=== PATIENT | male | born 1945 | race Caucasian/White ===

== ENCOUNTER → 2020-05-19 | Outpatient (CLI) | payer MEDICARE ==
[2018-10-23 14:10] VITALS: BP 148/68
[~2020-05-19] MED LIST: ACET325T9 PO; ALPH300C PO; AMLO-186 PO; ASPI-482 PO; ATOR10TA60 PO; ATOR40TA59 PO; CARDIO B; DOXY100T PO; GABA300C18 PO; HYDR-3164 PO; IBUP-1027 PO; LACT1CAP19 PO; METO25TA4 PO; MULT-629 PO; MUPI22OI2 NS; OMEG1CAP27 PO; UBID50TA PO
--- NOTE | 2020-05-19 17:47 | CARD ---
MR#: [id number] Date of Study: 05/19/2020 Ordering Physician: LISA LEHMAN, Referring Physician: LISA LEHMAN, Tech: Umm Braxton [facility] APPROVED REPORT EXAM: Two-dimensional and M-mode echocardiogram with Doppler and color Doppler. Other Information Quality : Fair INDICATION Cardiac Disease: CAD 2D DIMENSIONS RVDd2.8 (2.9-3.5cm)Left Atrium(2D)3.0 (1.6-4.0cm) IVSd1.0 (0.7-1.1cm)Aortic Root(2D)3.0 (2.0-3.7cm) LVDd5.3 (3.9-5.9cm)LVOT Diameter2.0 (1.8-2.4cm) PWd1.1 (0.7-1.1cm)LVDs3.6 (2.5-4.0cm) FS (%) 32.8 %SV81.9 ml LVEF(%)60.9 (>50%) Aortic Valve AoV Peak Elie.109.2cm/sAoV VTI23.9cm AO Peak GR.4.8mmHgLVOT Peak Elie.95.7cm/s AO Mean GR.2mmHgAVA (VMAX)2.81cm2 OBED (VTI)2.73cl3ZZ P 1/2 Mcqr441st Mitral Valve MV E Mpxtnkuq714.4cm/sMV DECEL VPNO920hi MV A Jnxtkwzd21.9cm/sE/A Ratio1.6 Tricuspid Valve TR P. Cfchmjyn257fx/sRAP AEYKBIVW2mmVl TR Peak Gr.06kkSeZVWY57wvDp Pulmonary Vein S1 Rxivrcwn98.8cm/sD2 Dharfgae69.1cm/s LEFT VENTRICLE The left ventricle is normal size. There is normal left ventricular wall thickness. The left ventricu lar systolic function is normal and the ejection fraction is within normal range. The Ejection Fracti on is 55-60%. There is normal LV segmental wall motion. Transmitral Doppler flow pattern is Grade II- pseudonormal filling dynamics. RIGHT VENTRICLE The right ventricle is normal size. The right ventricular systolic function is normal. ATRIA The left atrium size is normal. The right atrium size is normal. The interatrial septum is intact wit h no evidence for an atrial septal defect or patent foramen ovale as noted on 2-D or Doppler imaging. AORTIC VALVE The aortic valve is calcified but opens well. Doppler and Color Flow revealed mild aortic regurgitati on. There is no significant aortic valvular stenosis. MITRAL VALVE The mitral valve is calcified but opens well. There is no evidence of mitral valve prolapse. There is no mitral valve stenosis. Doppler and Color-flow revealed trace to mild mitral regurgitation. TRICUSPID VALVE The tricuspid valve is normal in structure and function. Doppler and Color Flow revealed trace tricus pid regurgitation. The PA pressure was estimated at 44 mmHg. There is no tricuspid valve stenosis. PULMONIC VALVE The pulmonic valve is not well visualized. Doppler and Color Flow revealed no pulmonic valvular regur gitation. There is no pulmonic valvular stenosis. GREAT VESSELS The aortic root is normal in size. The ascending aorta is normal in size. The IVC is dilated and yu apses >50% with inspiration. PERICARDIAL EFFUSION There is no evidence of significant pericardial effusion. Critical Notification Critical Value: No <Conclusion> The left ventricle is normal size. The left ventricular systolic function is normal and the ejection fraction is within normal range. The Ejection Fraction is 55-60%. Doppler and Color Flow revealed mild aortic regurgitation. There is no significant aortic valvular stenosis. Doppler and Color-flow revealed trace to mild mitral regurgitation. Doppler and Color Flow revealed trace tricuspid regurgitation. The PA pressure was estimated at 44 mmHg. Signed by : Rajesh Laughlin MD Electronically Approved : 05/19/2020 17:47:02
== END ==
LOC: ECHO 09:29
PROVIDERS: ATTEND Internal Medicine Cardiovascular Disease
DX: I08.0 Rheumatic disorders of both mitral and aortic valves (principal); I25.10 Atherosclerotic heart disease of native coronary artery without angina pectoris
CPT/HCPCS: 93306

== ENCOUNTER → 2021-09-01 | Outpatient (CLI) | payer MEDICARE ==
[2018-10-23 14:10] VITALS: BP 148/68
--- NOTE | 2021-09-01 12:35 | RAD ---
MR#: [id number] Date of Study: 09/01/2021 Ordering Physician: LISA LEHMAN, Referring Physician: LISA LEHMAN, Tech: Aron Blackmon MBA, RDMS, RVT, RDCS, RTR APPROVED REPORT Patient Location: OUT-PATIENT Indications PAD Findings The right ankle-brachial index is within normal limits at 1.1. The left ankle-brachial index is also within normal limits at 1.1. No significant peripheral artery stenosis based on THOMAS. Critical Notification Critical Value: No <Conclusion> Bilateral lower extremity ankle-brachial indices are within normal limits suggesting no significant p eripheral artery stenosis Signed by : Freeman Alvarez, Electronically Approved : 09/01/2021 12:34:19
--- NOTE | 2021-09-01 12:39 | RAD ---
MR#: [id number] Date of Study: 09/01/2021 Ordering Physician: LISA LEHMAN, Referring Physician: LISA LEHMAN, Tech: Aron Blackmon MBA, RDMS, RVT, RDCS, RTR APPROVED REPORT Patient Location: OUT-PATIENT Indications PAD VELOCITY AND DOPPLER WAVEFORM ANALYSIS RIGHT cm/secWaveformSeverity LEFT cm/secWaveform Severity dCFA 171.0TriphasicdCFA 163.0Triphasic Prof Fem Art. 110.0TriphasicProf Fem Art. 76.0Biphasic Fem Art Prox. 135.0TriphasicFem Art Prox. 154.0Triphasic Fem Art Mid. 148.0TriphasicFem Art Mid. 132.0Triphasic Fem Art Dist. 137.0TriphasicFem Art Dist. 352.0Triphasic Pop Art(Fossa) 124.0TriphasicPop Art(AK) 128.0Triphasic COBOL PROGRAMMER Prox. 157.0MonophasicPTA Prox. 114.0Triphasic COBOL PROGRAMMER Dist. 122.0MonophasicPTA Dist. 111.0Triphasic JOE Prox. 105.0MonophasicATA Prox. 51.0Triphasic DPA 28MonophasicDPA 70Triphasic Findings Grayscale images of peripheral arteries bilateral lower extremities showed mild diffuse atheroscleros is above the knee vessels and moderate diffuse atherosclerosis below the knee vessels. Spectral wave form and color duplex analysis was performed both lower extremities. There were mildly increased carmen ocities in bilateral common femoral arteries with triphasic waveforms. The right deep femoral, super ficial femoral and popliteal arteries showed normal velocities with triphasic waveforms. Below the k nee, the anterior tibial and posterior tibial arteries showed monophasic waveforms suggestive of mode rate diffuse disease. The peroneal artery was not well visualized. In the left lower extremity, there were normal velocities with triphasic waveforms in proximal and mi d segments of the superficial femoral artery. The distal segment of the left superficial femoral art virgie showed significantly elevated peak systolic velocities of 352 cm/s suggestive of greater than 70% stenosis. Left popliteal artery showed triphasic waveforms with normal velocities. Below the knee, the left anterior and posterior tibial arteries showed monophasic waveforms suggestive of moderate d iffuse disease. The left peroneal artery was not well visualized. Critical Notification Critical Value: No <Conclusion> Bilateral lower extremity arterial duplex scan showed significant greater than 70% stenosis involving the distal segment of the left superficial femoral artery. Signed by : Freeman Alvarez, Electronically Approved : 09/01/2021 12:39:21
--- NOTE | 2021-09-01 12:44 | RAD ---
MR#: [id number] Date of Study: 09/01/2021 Ordering Physician: LISA LEHMAN, Referring Physician: LISA LEHMAN, Tech: Aron Blackmon MBA, RDMS, RVT, RDCS, RTR APPROVED REPORT Patient Location: OUT-PATIENT Laterality:Bilateral Indications CAROTID STENOSIS Doppler Spectral Velocity Analysis Right Left pCCA 95/14 cm/spCCA 115/26 cm/s mCCA 106/15 cm/smCCA 128/24 cm/s dCCA 97/15 cm/sdCCA 100/16 cm/s Bulb 120/14 cm/sBulb 95/15 cm/s ECA 245/ cm/sECA 162/ cm/s pICA 96/23 cm/spICA 65/17 cm/s Samson 197/44 cm/smICA 88/21 cm/s dICA 143/21 cm/sdICA 116/29 cm/s Vert. Vert. 58/ cm/s Subcl. 175/ cm/sSubcl. 186/ cm/s ICA/CCA 1.86ICA/CCA 1.01 Findings Grayscale images of extracranial carotid arteries showed moderate plaque involving both carotid bulbs and right internal carotid artery. Spectral waveform and color duplex analysis showed normal veloci ties in bilateral common carotid and left internal carotid arteries suggestive of 0 to less than 50% stenosis. The right internal carotid artery in the midsegment showed elevated peak systolic velocity of 197 cm/s suggestive of 50 to 69% stenosis. The ICA to CCA ratios were within normal limits bilat erally. The external carotid arteries bilaterally showed increased velocities suggestive of moderate stenosis. The left vertebral artery showed antegrade flow with normal velocities. 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 Critical Notification Critical Value: No <Conclusion> Carotid arterial duplex scan showed moderate 50 to 69% stenosis involving the right internal carotid artery. Signed by : Freeman Alvarez, Electronically Approved : 09/01/2021 12:43:55
== END ==
LOC: US 09:33
PROVIDERS: ATTEND Internal Medicine Cardiovascular Disease
DX: I65.23 Occlusion and stenosis of bilateral carotid arteries (principal); I70.203 Unspecified atherosclerosis of native arteries of extremities, bilateral legs
CPT/HCPCS: 93880; 93922; 93925

== ENCOUNTER → 2021-09-07 | Outpatient (CLI) | payer MEDICARE ==
[2018-10-23 14:10] VITALS: BP 148/68
--- NOTE | 2021-09-07 16:40 | CARD ---
MR#: [id number] Date of Study: 09/07/2021 Ordering Physician: LISA LEHMAN, Referring Physician: LISA LEHMAN, Tech: Mervat Dumont [facility],T APPROVED REPORT EXAM: Two-dimensional and M-mode echocardiogram with Doppler and color Doppler. Other Information Quality : AverageHR: 100bpm Rhythm : NSR INDICATION Congestive Heart Failure 2D DIMENSIONS RVDd2.8 (2.9-3.5cm)Left Atrium(2D)3.2 (1.6-4.0cm) IVSd1.1 (0.7-1.1cm)Aortic Root(2D)3.4 (2.0-3.7cm) LVDd5.1 (3.9-5.9cm)LVOT Diameter2.0 (1.8-2.4cm) PWd1.2 (0.7-1.1cm)LVDs3.8 (2.5-4.0cm) FS (%) 24.4 %SV59.4 ml LVEF(%)48.2 (>50%) Aortic Valve AoV Peak Elie.118.5cm/Keyla Peak GR.5.9mmHg LVOT Peak Elie.97.2cm/sAVA (VMAX)2.59cm2 Mitral Valve MV E Bbjaazlr990.5cm/sMV DECEL ANEU408vp MV A Ykktyeqb45.1cm/sE/A Ratio1.4 Pulmonary Valve PV Peak Bnqmrdyg96.3cm/s Tricuspid Valve TR P. Xyibctzi203st/sRAP NONDUKCB3wgFc TR Peak Gr.22qlYvXVFM64abGa Pulmonary Vein S1 Pscrjhru26.8cm/sD2 Idzdiyab43.4cm/s PVa [id number] LEFT VENTRICLE The left ventricle is normal size. There is borderline to mild concentric left ventricular hypertroph y. The left ventricular systolic function is normal. The Ejection Fraction is 55 to 60%. No regional wall motion abnormalities noted. Transmitral Doppler flow pattern is Grade II-pseudonormal filling dy namics. No left ventricle thrombus noted on this study. There is no ventricular septal defect visuali zed. There is no left ventricular aneurysm. There is no mass noted in the left ventricle. RIGHT VENTRICLE The right ventricle is normal size. There is normal right ventricular wall thickness. The right ventr icular systolic function is normal. ATRIA The left atrium size is normal. The right atrium size is normal. The interatrial septum is intact wit h no evidence for an atrial septal defect or patent foramen ovale as noted on 2-D or Doppler imaging. AORTIC VALVE The aortic valve is normal in structure and function. Doppler and Color Flow revealed mild aortic reg urgitation. There is no aortic valvular stenosis. There is no aortic valvular vegetation. MITRAL VALVE The mitral valve is normal in structure and function. There is no evidence of mitral valve prolapse. There is no mitral valve stenosis. Doppler and Color Flow revealed mild mitral regurgitation. TRICUSPID VALVE The tricuspid valve is normal in structure and function. Doppler and Color Flow revealed mild tricusp id regurgitation. There is no tricuspid valve prolapse or vegetation. There is no tricuspid valve alyssa nosis. PULMONIC VALVE The pulmonary valve is normal in structure and function. There is no pulmonic valvular regurgitation. There is no pulmonic valvular stenosis. GREAT VESSELS The aortic root is normal in size. The ascending aorta is normal in size. The pulmonary artery is nor mal. The IVC is normal in size and collapses >50% with inspiration. PERICARDIAL EFFUSION There is no pleural effusion. There is no evidence of significant pericardial effusion. Critical Notification Critical Value: No <Conclusion> The left ventricular systolic function is normal. The Ejection Fraction is 55 to 60%. No regional wall motion abnormalities noted. Transmitral Doppler flow pattern is Grade II-pseudonormal filling dynamics. Mild aortic regurgitation. Mild mitral regurgitation. Mild tricuspid regurgitation. There is no evidence of significant pericardial effusion. Signed by : Freeman Alvarez, Electronically Approved : 09/07/2021 16:39:41
--- NOTE | 2021-09-07 16:59 | RAD ---
MR#: [id number] Date of Study: 09/07/2021 Ordering Physician: LISA LEHMAN, Referring Physician: LISA LEHMAN, Tech: Aron Blackmon MBA, RDMS, RVT, RDCS, RTR APPROVED REPORT Patient Location : OUT-PATIENT Indications VENOUS INCOMPETENCE Accessory Veins Reflux : Yes Perforators Thigh Perforators Calf Perforators Right: cm up from medial heel 16cm back from the anterior border of tibia 3 diameter 3mm. Left: cm up from medial heel 25cm back from the anterior border of tibia 3 diameter 2.2mm. Findings Grayscale images of superficial veins and saphenofemoral junctions bilateral lower extremities were g rossly unremarkable without any evidence of thrombus. Spectral waveform and color duplex analysis di d not show any significant venous insufficiency involving bilateral greater or lesser saphenous veins . Critical Notification Critical Value: No <Conclusion> Venous reflux study did not show any significant venous insufficiency involving bilateral greater or lesser saphenous veins. Signed by : Freeman Alvarez, Electronically Approved : 09/07/2021 16:59:34
== END ==
LOC: ECHO 10:16
PROVIDERS: ATTEND Internal Medicine Cardiovascular Disease
DX: I08.3 Combined rheumatic disorders of mitral, aortic and tricuspid valves (principal); I87.2 Venous insufficiency (chronic) (peripheral); I50.30 Unspecified diastolic (congestive) heart failure
CPT/HCPCS: 93306; 93970; C8929